=== PATIENT | male | born 1940 | race Caucasian/White ===

== ENCOUNTER → 2017-01-01 | Outpatient (CLI) | payer MEDICARE ==
[~2017-01-01] MED LIST: *BLDWK10; ALLOPUR300 PO; BABY81CH; COLC0.6T; COLCHI0.6 PO; CORE6.25; COUMADIN25 PO; CRES20TA; CRESTOR PO; DOXYCYC100 PO; ELIDEL TOPICAL; FERR325T; FERROUS325 PO; GLUCOP1000 PO; HCTZ25 PO; ISOS30BRAN; LIPITOR10 PO; NEXIUM40 PO; NITR0.4S; NITROSTAT4 SL; NIZORALSHA TOPICAL; PERCOCET PO; PLAVIX75 PO; THERGRAN; TRAM50TA2; TRICOR48 PO; TRICOR54 PO; ULTRAM50 PO; VASO5TAB; VASOTEC25 PO; VIAGRA100 PO; VIAGRA50 PO; VICO5TAB; VICODIN PO; ZETIA PO; [UNRECOGNIZED DRUG - CODE] PO; [UNRECOGNIZED DRUG - OTHER] TOPICAL
== END ==
LOC: M LAB 07:41
PROVIDERS: ATTEND Urology
DX: Z85.46 Personal history of malignant neoplasm of prostate (principal)

== ENCOUNTER → 2017-05-22 | Outpatient (CLI) | payer MEDICARE ==
--- NOTE | 2017-05-23 09:54 | DEXA ---
AP SPINE L1 - L4 1.390 1.6 1.8 LT FEMUR TOTAL 0.730 -2.2 -1.7 RT FEMUR TOTAL TOTAL BODY TOTAL OTHER COMMENTS: Normal bone densitometry of the spine. There is low bone density of the left hip. The density of the spine is increased 5.4% since the initial exam on 01/23/2011. The spine density has decreased 1.9% since the most recent exam on 06/03/2015. The density of the left hip has decreased 7.4% since the initial exam on 2010. The density of the left hip has increased 0.4% since the most recent exam on . FOLLOW-UP: Recommendation for the next bone density exam: 2 years. ABI
== END ==
LOC: M WHC 09:57
PROVIDERS: ATTEND Urology
DX: Z85.46 Personal history of malignant neoplasm of prostate (principal)

== ENCOUNTER → 2017-07-03 | Outpatient (CLI) | payer MEDICARE ==
[2017-07-03 07:51] LABS: MEAN CORPUSCULAR HEMOGLOBIN 31.8 pg (27.0-33.0); MEAN CORPUSCULAR HGB CONC 32.9 g/dl (32.0-36.5); MEAN CORPUSCULAR VOLUME 96.6 fl (80.0-96.0); PLATELET COUNT, AUTOMATED 206 10^3/uL (150-450); RED CELL DISTRIBUTION WIDTH 13.2 % (11.5-14.5)
[2017-07-03 08:32] LABS: ANION GAP 6 MEQ/L (8-16); BLOOD UREA NITROGEN 35 MG/DL (7-18); CALCIUM LEVEL 9.4 MG/DL (8.8-10.2); CARBON DIOXIDE LEVEL 30 MEQ/L (21-32); CHLORIDE LEVEL 105 MEQ/L (98-107); GLOMERULAR FILTRATION RATE 39.5 (>42); GLUCOSE, FASTING 133 MG/DL (83-110); POTASSIUM SERUM 4.4 MEQ/L (3.5-5.1); SODIUM LEVEL 141 MEQ/L (136-145)
== END ==
LOC: M LAB 07:34
PROVIDERS: ATTEND Urology
DX: Z85.46 Personal history of malignant neoplasm of prostate (principal)

== ENCOUNTER → 2017-11-29 | Outpatient (REF) | payer MEDICARE ==
[2017-11-29 18:37] LABS: URIC ACID 4.6 MG/DL (3.5-7.2)
== END ==
LOC: M LAB REF 17:26
DX: M10.9 Gout, unspecified (principal)
CPT/HCPCS: 84550

== ENCOUNTER → 2017-12-20 | Outpatient (CLI) | payer MEDICARE | LOC: M RAD 10:50 | DX: D49.519 Neoplasm of unspecified behavior of unspecified kidney (principal) | CPT/HCPCS: 76775 ==

== ENCOUNTER → 2017-12-28 | Outpatient (CLI) | payer MEDICARE ==
[2017-12-28 08:20] LABS: HEMOGLOBIN 12.5 g/dl (13.5-17.5); MEAN CORPUSCULAR HGB CONC 32.9 g/dl (32.0-36.5); MEAN CORPUSCULAR VOLUME 97.2 fl (80.0-96.0); PLATELET COUNT, AUTOMATED 158 10^3/uL (150-450); RED BLOOD COUNT 3.91 10^6/uL (4.30-6.10); RED CELL DISTRIBUTION WIDTH 13.8 % (11.5-14.5); WHITE BLOOD COUNT 3.7 10^3/uL (4.0-10.0)
[2017-12-28 08:45] LABS: ANION GAP 5 MEQ/L (8-16); BLOOD UREA NITROGEN 27 MG/DL (7-18); CALCIUM LEVEL 9.2 MG/DL (8.8-10.2); CARBON DIOXIDE LEVEL 28 MEQ/L (21-32); CHLORIDE LEVEL 110 MEQ/L (98-107); CREATININE FOR GFR 1.94 MG/DL (0.70-1.30); GLOMERULAR FILTRATION RATE 36.1 (>42); GLUCOSE, FASTING 155 MG/DL (70-100); POTASSIUM SERUM 4.4 MEQ/L (3.5-5.1); PROSTATIC SPECIFIC AG MONITOR < 0.01 NG/ML (< 4.0); SODIUM LEVEL 143 MEQ/L (136-145)
== END ==
LOC: M LAB 07:39
DX: Z08 Encounter for follow-up examination after completed treatment for malignant neoplasm (principal); Z85.46 Personal history of malignant neoplasm of prostate
CPT/HCPCS: 84153

== ENCOUNTER → 2018-07-04 | Outpatient (CLI) | payer MEDICARE ==
[2018-07-04 11:06] LABS: HEMATOCRIT 38.1 % (42.0-52.0); HEMOGLOBIN 12.3 g/dl (13.5-17.5); MEAN CORPUSCULAR HEMOGLOBIN 32.2 pg (27.0-33.0); MEAN CORPUSCULAR HGB CONC 32.3 g/dl (32.0-36.5); MEAN CORPUSCULAR VOLUME 99.7 fl (80.0-96.0); PLATELET COUNT, AUTOMATED 160 10^3/uL (150-450); RED BLOOD COUNT 3.82 10^6/uL (4.30-6.10); RED CELL DISTRIBUTION WIDTH 13.2 % (11.5-14.5); WHITE BLOOD COUNT 5.6 10^3/uL (4.0-10.0)
[2018-07-04 11:36] LABS: ANION GAP 5 MEQ/L (8-16); BLOOD UREA NITROGEN 30 MG/DL (7-18); CALCIUM LEVEL 9.6 MG/DL (8.8-10.2); CARBON DIOXIDE LEVEL 28 MEQ/L (21-32); CHLORIDE LEVEL 109 MEQ/L (98-107); CREATININE FOR GFR 1.75 MG/DL (0.70-1.30); GLOMERULAR FILTRATION RATE 40.7 (>42); GLUCOSE, FASTING 146 MG/DL (70-100); POTASSIUM SERUM 4.4 MEQ/L (3.5-5.1); PROSTATIC SPECIFIC AG MONITOR < 0.0 NG/ML (< 4.0); SODIUM LEVEL 142 MEQ/L (136-145)
== END ==
LOC: M RAD 10:29
DX: Z85.46 Personal history of malignant neoplasm of prostate (principal); N28.9 Disorder of kidney and ureter, unspecified; E27.9 Disorder of adrenal gland, unspecified; N28.1 Cyst of kidney, acquired
CPT/HCPCS: 76775

== ENCOUNTER → 2019-01-14 | Outpatient (CLI) | payer MEDICARE ==
[2019-01-14 09:25] LABS: ALBUMIN 3.7 GM/DL (3.2-5.2); BILIRUBIN,TOTAL 0.9 MG/DL (0.2-1.0); CREATININE FOR GFR 1.74 MG/DL (0.70-1.30); GLOMERULAR FILTRATION RATE 40.8 (>42); POTASSIUM SERUM 4.3 MEQ/L (3.5-5.1)
== END ==
LOC: M LAB 07:45
PROVIDERS: ATTEND Family Medicine
DX: E11.21 Type 2 diabetes mellitus with diabetic nephropathy (principal); I12.9 Hypertensive chronic kidney disease with stage 1 through stage 4 chronic kidney disease, or unspecified chronic kidney disease

== ENCOUNTER → 2019-01-14 | Outpatient (CLI) | payer MEDICARE ==
[2019-01-14 09:26] LABS: CHOLESTEROL RISK RATIO 2.885 (<5)
== END ==
LOC: M LAB 07:42
PROVIDERS: ATTEND Internal Medicine Cardiovascular Disease
DX: E78.00 Pure hypercholesterolemia, unspecified (principal)

== ENCOUNTER → 2019-01-14 | Outpatient (CLI) | payer MEDICARE | LOC: M LAB 07:39 | PROVIDERS: ATTEND Nurse Practitioner Women's Health | DX: Z85.46 Personal history of malignant neoplasm of prostate (principal) ==

== ENCOUNTER 2019-02-17 17:59 | Emergency (ER) | payer MEDICARE ==
[~2019-02-17] VITALS: Ht 172.7 cm; Wt 68.2 kg
[2019-02-17] MEDS ORDERED: AMLO10TA5 PO (18:08)
[2019-02-17] MEDS ORDERED: ALLO10TA PO (18:08)
[2019-02-17] MEDS ORDERED: [UNRECOGNIZED DRUG - OTHER] PO (18:08)
[2019-02-17] MEDS ORDERED: LEVO50TA5 PO (18:08)
[2019-02-17] MEDS ORDERED: GLIP-162 PO (18:08)
[2019-02-17] MEDS ORDERED: FURO40TA2 PO (18:09)
[2019-02-17] MEDS ORDERED: TRUL0.5I SC (18:09)
[2019-02-17] MEDS ORDERED: LEUPROLIDE (18:11)
[2019-02-17] MEDS ORDERED: ESOM1CAP5 PO (18:11)
--- NOTE | 2019-02-17 18:45 | REPVR ---
EXAM: US Duplex Right Lower Extremity Veins, Limited EXAM DATE/TIME: 02/17/2019 6:26 PM CLINICAL HISTORY: 78 years old, male; Pain; Leg, lower; Right; Additional info: R leg swelling, pain TECHNIQUE: Imaging protocol: Real-time Duplex ultrasound of the Right Lower Extremity with 2-D lugo scale, color Doppler flow and spectral waveform analysis. Limited exam was focused on the right lower extremity veins. COMPARISON: No relevant prior studies available. FINDINGS: Right deep veins: Unremarkable. The common femoral, femoral, proximal profunda femoral and popliteal veins are patent without thrombus. Normal Doppler waveforms. Normal compressibility and/or augmentation response. Right superficial veins: Not evaluated. Soft tissues: Unremarkable. IMPRESSION: No evidence of deep vein thrombosis. Electronically signed by: Afia Mondragon On 02/17/2019 18:44:58 PM
[2019-02-17] MEDS ORDERED: KEFL500C17 PO (20:52)
[2019-02-17] MEDS ORDERED: CEPHALEXIN 500 MG CAP PO ONE (21:00)
[2019-02-17 21:05] VITALS: BP 154/71
== END 2019-02-17 21:07 | disposition home or self-care (01) ==
LOC: M ED 17:59
DX: L03.115 Cellulitis of right lower limb (principal); G06.1 Intraspinal abscess and granuloma; E11.9 Type 2 diabetes mellitus without complications; I10 Essential (primary) hypertension; E78.5 Hyperlipidemia, unspecified; Z79.82 Long term (current) use of aspirin; Z79.891 Long term (current) use of opiate analgesic; Z79.899 Other long term (current) drug therapy; Z85.46 Personal history of malignant neoplasm of prostate; Z87.442 Personal history of urinary calculi; Z90.79 Acquired absence of other genital organ(s); Z91.041 Radiographic dye allergy status; Z95.1 Presence of aortocoronary bypass graft

== ENCOUNTER → 2019-03-19 | Outpatient (REF) | payer MEDICARE ==
[~2019-03-19] MED LIST changes: +ALLO10TA PO; +AMLO10TA5 PO; +ESOM1CAP5 PO; +FURO40TA2 PO; +GLIP-162 PO; +KEFL500C17 PO; +LEUPROLIDE; +LEVO50TA5 PO; +TRUL0.5I SC; +[UNRECOGNIZED DRUG - OTHER] PO
[2019-03-19 13:31] LABS: HEMATOCRIT 37.7 % (42.0-52.0)
[2019-03-19 13:41] LABS: FERRITIN 107 NG/ML (26-388); IRON (FE) 65 UG/DL (65-175); PERCENT SATURATION 24.5 % (19.7-50.0); TOTAL IRON BINDING CAPACITY 265 UG/DL (250-450)
[2019-03-19 13:56] LABS: HEPATITIS B SURFACE ANTIGEN NEGATIVE (NEGATIVE)
[2019-03-19 14:23] LABS: HEPATITIS C VIRUS ABY INDEX 0.1 INDEX (<0.8)
[2019-03-19 14:24] LABS: HEPATITIS B CORE ANTIBODY IGM NEGATIVE (NEGATIVE)
[2019-03-19 14:25] LABS: HEPATITIS A ANTIBODY IGM NEGATIVE (NEGATIVE)
[2019-03-20 14:08] LABS: ANTINUCLEAR ANTIBODIES DIRECT Negative (Negative)
== END ==
LOC: M LAB REF 12:42
PROVIDERS: ATTEND Nurse Practitioner Adult Health
DX: D64.9 Anemia, unspecified (principal)

== ENCOUNTER → 2019-04-18 | Outpatient (CLI) | payer MEDICARE | LOC: M LAB 09:01 | PROVIDERS: ATTEND Urology | DX: C61 Malignant neoplasm of prostate (principal) ==

== ENCOUNTER → 2019-07-01 | Outpatient (CLI) | payer MEDICARE ==
--- NOTE | 2019-07-01 14:32 | REP ---
URINARY TRACT SONOGRAPHY: HISTORY: History of left renal neoplasm. Comparison sonography, June 24, 2018. Comparison CT study of the abdomen, February 10, 2013. There is an outside comparison MRI study from September 27, 2016. 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 SONOGRAPHIC FINDINGS: Scanning at the level of the urinary bladder demonstrates that it is virtually empty at the time of scanning. Renal cortical echogenicity pattern is normal, and contours are smooth. The right kidney measures 10.3 x 4.9 x 5.3 cm. Left renal dimensions are 9.0 x 3.4 x 4.4 cm. There is a 1.3 cm cyst in the lower pole of the right kidney. On the left, there is a 2.0 x 1.9 x 1.7 cm essentially isoechoic nodular area corresponding to the lesion seen on CT and MRI. This is very poorly visualized on sonography. There is an echogenic focus in the lower pole of the left kidney which may cast acoustic shadowing, possible stone. No stone is visible on the 2013 CT. No other mass lesion is seen. IMPRESSION: Ill-defined, essentially isoechoic mass suspected left mid kidney corresponding to the CT and MR images. 2.0 cm in greatest diameter by today's ultrasound. Previous MRI coronal reformatted scans demonstrate a 2.4 cm greatest craniocaudal span. Renal malignancy cannot be excluded. Electronically Signed by Michael Yang MD 07/01/2019 05:56 P
== END ==
LOC: M RAD 11:33
PROVIDERS: ATTEND Urology
DX: D49.519 Neoplasm of unspecified behavior of unspecified kidney (principal); C61 Malignant neoplasm of prostate

== ENCOUNTER → 2020-01-01 | Outpatient (CLI) | payer MEDICARE | LOC: M LAB 08:04 | PROVIDERS: ATTEND Urology | DX: C61 Malignant neoplasm of prostate (principal) ==

== ENCOUNTER 2020-03-26 12:05 | Inpatient (IN) | payer MEDICARE ==
[~2020-03-26 12:05] MED LIST changes: -AMLO10TA5 PO; +AMLO1TAB25 PO
[2020-03-26] MEDS ORDERED: MORPHINE 2 MG/ML 1ML VIAL (J2270) As Ordered ONE ×2 (13:28→14:36)
[2020-03-26] MEDS ORDERED: MORPHINE 2 MG/ML 1ML VIAL (J2270) ONE ×2 (13:28→14:36)
[2020-03-26] MEDS ORDERED: ONDANSETRON 4MG/2ML VIAL As Ordered ONE (13:28)
[2020-03-26] MEDS ORDERED: ONDANSETRON 4MG/2ML VIAL ONE ×2 (13:28→19:43)
[2020-03-26] MEDS ORDERED: READI-CAT 2 ONE ×2 (13:37→14:36)
[2020-03-26] MEDS ORDERED: READI-CAT 2 As Ordered ONE ×2 (13:37→14:36)
[2020-03-26] MEDS ORDERED: ZOSYN 3.375GM VIAL (J2543) ONE (17:13)
[2020-03-26] MEDS ORDERED: ZOSYN 3.375GM VIAL (J2543) As Ordered ONE (17:13)
[2020-03-26] MEDS ORDERED: BUPIVACAINE HCL 0.25% 30ML VIAL ONE (19:09)
[2020-03-26] MEDS ORDERED: LIDOCAINE 1% SDV 30ML VIAL ONE (19:09)
[2020-03-26] MEDS ORDERED: ROCURONIUM BROMIDE 50 MG/5 ML VIAL ONE (19:43)
[2020-03-26] MEDS ORDERED: LIDOCAINE 2% 100MG/5ML SDV (FOR ANES.) ONE (19:43)
[2020-03-26] MEDS ORDERED: METOCLOPRAMIDE INJ 10MG/2ML VIAL (J2765 PER 1) ONE (19:43)
[2020-03-26] MEDS ORDERED: MIDAZOLAM INJ 2MG/2ML VIAL (J2250 PER 1MG) ONE (19:43)
[2020-03-26] MEDS ORDERED: dexameTHASONE 4 MG/ML 1ML VIAL (J1100 PER 1MG) ONE (19:43)
[2020-03-26] MEDS ORDERED: KETOROLAC 60MG 2ML VIAL ONE (19:43)
[2020-03-26] MEDS ORDERED: fentaNYL 100 MCG/2 ML INJECTION (J3010) ONE ×2 (19:43→20:02)
[2020-03-26] MEDS ORDERED: propofoL 200 MG/20 ML VIAL ONE (19:43)
[2020-03-26] MEDS ORDERED: SUGAMMADEX SODIUM 500 MG/5 ML VIAL (BRIDION) ONE (19:43)
[2020-03-26] MEDS ORDERED: DESFLURANE 240 ML INHALANT ONE ×2 (19:43→20:22)
[2020-03-26] MEDS ORDERED: MEPERIDINE INJ 25 MG/ML VIAL (J2175) ONE (21:11)
[2020-03-27] MEDS ORDERED: ZOSYN 3.375GM VIAL (J2543) As Ordered ONE ×2 (00:42→05:56)
[2020-03-27] MEDS ORDERED: ZOSYN 3.375GM VIAL (J2543) ONE ×2 (00:42→05:56)
[2020-03-27] MEDS ORDERED: LEVOTHYROXINE 50MCG TABLET (0.05MG) As Ordered ONE (06:18)
[2020-03-27] MEDS ORDERED: LEVOTHYROXINE 50MCG TABLET (0.05MG) ONE (06:18)
[2020-03-27] MEDS ORDERED: ROSUVASTATIN 10 MG TAB (CRESTOR) ONE (08:27)
[2020-03-27] MEDS ORDERED: allopurinoL 300 MG TAB ONE (08:27)
[2020-03-27] MEDS ORDERED: ENOXAPARIN 30MG/0.3ML SYRINGE (J1650 PER 10MG) ONE (08:27)
[2020-03-27] MEDS ORDERED: EZETIMIBE 10 MG TAB (ZETIA) As Ordered ONE (08:27)
[2020-03-27] MEDS ORDERED: PANTOPRAZOLE 40MG TAB (PROTONIX) As Ordered ONE (08:27)
[2020-03-27] MEDS ORDERED: EZETIMIBE 10 MG TAB (ZETIA) ONE (08:27)
[2020-03-27] MEDS ORDERED: PANTOPRAZOLE 40MG TAB (PROTONIX) ONE (08:27)
[2020-03-27] MEDS ORDERED: amLODIPine 10 MG TAB As Ordered ONE (08:28)
[2020-03-27] MEDS ORDERED: ROSUVASTATIN 10 MG TAB (CRESTOR) As Ordered ONE (08:28)
[2020-03-27] MEDS ORDERED: allopurinoL 300 MG TAB As Ordered ONE (08:28)
[2020-03-27] MEDS ORDERED: ENOXAPARIN 30MG/0.3ML SYRINGE (J1650 PER 10MG) As Ordered ONE (08:29)
--- NOTE | 2020-04-23 11:41 | ER ---
DATE: 03/26/2020 HISTORY OF PRESENT ILLNESS: Mr. Cardona is a 79-year-old male who presented to the emergency department at 11 a.m. in the morning with lower abdominal pain. He said the pain started at 5 a.m. in the morning in his right lower abdominal quadrant. It was sharp, constant, 7/10, and progressive. There was no radiation. No aggravating and relieving factors. The patient also complains of having vomiting, one episode, a cupful, normal in color. No blood, no mucus. The patient also has nausea. He had two bowel movements, which made no difference in his pain intensity. He has no fevers, no sudden weight or unintentional weight loss, no history of travel, no fever, no sore throat, no diarrhea, no genitourinary problems. PAST MEDICAL HISTORY: Significant for: 1. Diabetes. 2. Hypertension. 3. 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 4. Stage III chronic kidney disease. 5. Prostate cancer. 6. Coronary artery disease. FAMILY HISTORY: Diabetes in mother. SOCIAL HISTORY: He has no history of alcohol intake. No smoking and no illicit drug use. SEXUAL HISTORY: He is sexually active with his . Does not use protection. PAST SURGICAL HISTORY: 1. Bilateral hip replacement surgeries. 2. Coronary artery bypass graft (CABG) procedure done. MEDICATIONS: - Trulicty weekly for diabetes - glipizide 5 mg daily for diabetes - amlodipine 10 mg daily for hypertension - ezetimibe 10 mg twice a day for hypercholesterolemia - Synthroid 50 mcg daily for hypothyroidism - furosemide 40 mg per oral for hypertension - esomeprazole 40 mg per oral - allopurinol 130 mg per oral - Eligard, Lupron 45 mg monthly for his previous prostate cancer - isosorbide mononitrate 60 mg per oral - tramadol 50 mg as needed - Tylenol 650 mg as needed - Crestor 20 mg per oral daily PHYSICAL EXAMINATION: The patient looks comfortable, sitting in the bed, well oriented to time, place, person. Not in any acute distress at the moment. He has already been given pain medications. Put on Zosyn and Zofran for the nausea. Currently comfortable. HEAD/ENT: Eyes: No discharge, no conjunctival injection, no scleral icterus, no pallor. Extraocular movements normal. No discharge from the nose, mouth, ears. Hydration status good. Dental hygiene good. There are no lymphadenopathies, no thyromegaly, no swelling in the neck, no carotid bruit. LUNGS: Clear bilaterally. No wheezing, no rhonchi, no crackles heard. HEART: Normal heart sounds, S1, S2. No murmurs heard. ABDOMEN: The abdomen looks nondistended. No rashes. No scars from previous surgeries. No visible pulsations. On palpation, there is tenderness in the right lower quadrant and the middle lower quadrants. No organomegaly could be palpated. No swelling elsewhere. Auscultation: Normal bowel sounds heard. Tympanitic bowel sounds. On percussion, normal tympanitic percussion all over the abdomen. Normal liver span. No splenomegaly. Tenderness felt at the McBurney's point. LOWER EXTREMITIES: Mild bilateral edema seen. UPPER EXTREMITIES: Pulses are good. Good volume, regular. No radial/femoral delay. No cyanosis, no clubbing, no asterixis. NEUROLOGIC: Sensation is intact with gross motor normal. Cranial nerves normal. The patient was admitted in the emergency department (ED), and his labs were done. Labs showed electrolytes were normal. Glucose was 158. Creatinine was 2, BUN was 36. Oral contrast was given for CT scan, and a CT contrast shows acute appendicitis, cholelithiasis with no evidence of acute cholecystitis. Moderately severe coronary artery calcification with evidence of prior CABG. The heart size is normal. Prior prostatectomy changes in the pelvis. Right total hip arthroplasty with no apparent complication. Mild left renal atrophy. A small 11 mm rounded hypodense mass is present in the cortex of the lower pole, right kidney. ASSESSMENT: Acute appendicitis. PLAN: Put the patient on IV fluids. Intravenous Zosyn started. Zofran to control the nausea. The surgical plan is to perform appendectomy laparoscopically, watch overnight for any fevers, and then discharge on oral antibiotics. ABI
[2020-05-09 15:53] LABS: INR 1.06; PARTIAL THROMBOPLASTIN TIME 33.8 SECONDS (24.2-38.5)
[2020-05-09 15:56] LABS: BASO % 0.2 % (0.0-1.0); HEMATOCRIT 37.4 % (42.0-52.0); HEMOGLOBIN 12.7 g/dl (13.5-17.5); LYMPH # 0.6 10^3/uL (1.5-5.0); LYMPH % 5.6 % (24.0-44.0); MEAN CORPUSCULAR HEMOGLOBIN 34.1 pg (27.0-33.0); MEAN CORPUSCULAR VOLUME 100.5 fl (80.0-96.0); MONO # 0.6 10^3/uL (0.0-0.8); NEUTROPHILS # 9.3 10^3/uL (1.5-8.5); NEUTROPHILS % 87.8 % (36.0-66.0); PLATELET COUNT, AUTOMATED 154 10^3/uL (150-450); RED BLOOD COUNT 3.72 10^6/uL (4.30-6.10); WHITE BLOOD COUNT 10.6 10^3/uL (4.0-10.0)
[2020-05-14 14:44] LABS: BASO % 0.1 % (0.0-1.0); HEMATOCRIT 31.7 % (42.0-52.0); HEMOGLOBIN 10.7 g/dl (13.5-17.5); LYMPH # 0.4 10^3/uL (1.5-5.0); LYMPH % 4.2 % (24.0-44.0); MEAN CORPUSCULAR HEMOGLOBIN 34.5 pg (27.0-33.0); MEAN CORPUSCULAR HGB CONC 33.8 g/dl (32.0-36.5); MEAN CORPUSCULAR VOLUME 102.3 fl (80.0-96.0); MONO # 0.3 10^3/uL (0.0-0.8); NEUTROPHILS # 8.3 10^3/uL (1.5-8.5); NEUTROPHILS % 92.4 % (36.0-66.0); PLATELET COUNT, AUTOMATED 129 10^3/uL (150-450)
--- NOTE | 2020-05-27 09:30 | RO ---
DATE OF OPERATION: 03/26/2020 PREOPERATIVE DIAGNOSIS: Acute appendicitis. POSTOPERATIVE DIAGNOSIS: Acute appendicitis, suppurativa, not perforated. PROCEDURE: Laparoscopic appendectomy. SURGEON: Carlos Espinoza MD TRY OUT PERSON: Melonie Diaz MD, PGY-1 ANESTHESIA: General. SPECIMEN: Appendix. ESTIMATED BLOOD LOSS: 10 mL. COMPLICATIONS: None. CONDITION: Patient tolerated the procedure well. DESCRIPTION OF PROCEDURE: Mr. Longoria was seen in the emergency room with a one day history of abdominal pain. He was found to have evidence for acute appendicitis. He was brought to the OR for laparoscopic appendectomy. He received Zosyn 3.75 grams intravenously (IV) preoperatively while he was seen in the emergency room. He was brought to the operating room and placed supine on the table. Compression boots placed on his lower extremities for deep vein thrombosis (DVT) prophylaxis. General endotracheal anesthesia was started. His abdomen was then prepped and draped in the usual sterile fashion. He had a lower midline incision from his prostatectomy; thus, we entered the abdomen through the left upper quadrant via Veress needle technique. CO2 insufflation was then started at a pressure of 15 mmHg. Using the same incision, a 5-mm VisiPort was placed under direct vision with the laparoscope. The insertion site was then inspected for injury and none was found. He was then placed in the Trendelenburg position with the right side tilted up to further expose the appendix. He had some omental adhesions along the lower of the abdomen. I placed a 5-mm left lower quadrant port and took down the omental adhesions with the Harmonic scalpel. An 8-mm port was placed just underneath the umbilicus. There was some difficulty visualizing the right lower quadrant due to the mild distention of the cecum. Likewise, slight adhesion of the lower portion of the appendix to the left lateral side wall. Thus, I switched the left upper quadrant port to a suprapubic port. Using this as my operative port, the adhesions of the appendix to the retroperitoneum and right side wall was taken down delivering the appendix into view. The mesoappendix was divided with the Harmonic scalpel. There was panniculus at the distal third. This tapered off to a relatively healthy mass. There was some suppurative covering on the distal portion of the appendix. I did not see any perforation. There was a scant amount of reactive fluid at the right gutter. Two EndoLoop PDS were placed to ligate the base of the appendix and the appendix was divided with the Harmonic scalpel. This was placed in the a 5-mm Endo Catch bag and delivered through the 8-mm port site. Under insufflation, we checked for hemostasis and suctioned off the small amount of fluid at the right gutter. There was no fluid visualized in the pelvis nor around the liver. After surveying for any injury, the abdomen was deflated and all ports were removed. The 8-mm port site was closed with 0-Vicryl in a mattress fashion. All skin incisions closed with 4-0 Monocryl in a subcuticular fashion. Steri-Strips, gauze dressings, and Tegaderm then placed on top of the incision. The patient was then promptly awakened, extubated, and brought to the recovery room in stable condition. ABI
--- NOTE | 2020-06-03 08:17 | IPN ---
DATE: 03/26/2020 The patient reports feeling much better. Denies any nausea or vomiting. Tolerating clear liquids this morning and voiding freely. Vital signs were reviewed. He has been afebrile, nontachycardic. On examination, he is lying in bed. Looks very comfortable. Skin is warm and dry. Lungs sounds are clear to auscultation bilaterally. No wheezing. Heart rate and rhythm are regular with no murmurs. Abdomen is relatively flat, soft, nondistended. Port site dressings are clean, dry, and intact. Nontender on palpation. No significant extremity edema. Laboratories were reviewed. His white count is down to 9. Otherwise, his electrolytes are also normal. His creatinine has come down to 1.9. IMPRESSION: Postoperative day #1 following laparoscopic appendectomy for acute appendicitis that is not perforated and no significant extra-appendiceal fluid collection. He will be advanced to a regular diet. If he tolerates it, he should be able to go home. I do not think he needs any further antibiotic treatment. He is instructed to followup with me in the clinic in 2 weeks' time. A prescription for Percocet 2.5/325 mg tablets was sent to his pharmacy. ABI
[2020-06-14 11:46] LABS: ALT/SGPT 88 U/L (12-78); BILIRUBIN,DIRECT 0.3 MG/DL (0.0-0.2); BILIRUBIN,TOTAL 0.7 MG/DL (0.2-1.0); BLOOD UREA NITROGEN 36 MG/DL (7-18); CALCIUM LEVEL 9.3 MG/DL (8.8-10.2); CARBON DIOXIDE LEVEL 25 MEQ/L (21-32); CHLORIDE LEVEL 108 MEQ/L (98-107); CK-MB VALUE MASS 1.4 NG/ML (<3.6); CPK CREATINE PHOSPHOKINASE 121 U/L (39-308); GLOMERULAR FILTRATION RATE 34.7 (>42); GLUCOSE, FASTING 158 MG/DL (70-100); MB/CK RELATIVE INDEX 1.16 (< OR =4); POTASSIUM SERUM 4.6 MEQ/L (3.5-5.1); SODIUM LEVEL 139 MEQ/L (136-145); TOTAL PROTEIN 7.4 GM/DL (6.4-8.2); TROPONIN I < 0.02 NG/ML (< 0.10)
[2020-06-21 19:52] LABS: CALCIUM LEVEL 9.1 MG/DL (8.8-10.2); CREATININE FOR GFR 1.93 MG/DL (0.70-1.30); GLOMERULAR FILTRATION RATE 36.1 (>42); POTASSIUM SERUM 4.9 MEQ/L (3.5-5.1)
== END 2020-03-27 12:41 | disposition home or self-care (01) | DRG 343 ==
LOC: M ED 12:05 → M MS5PR 20:38
PROVIDERS: ADMIT Surgery; ATTEND Surgery
PROC: 0DTJ4ZZ Resection of Appendix, Percutaneous Endoscopic Approach (ICD-10-PCS; principal; 2020-03-26)
DX: K35.80 Unspecified acute appendicitis (principal); E11.9 Type 2 diabetes mellitus without complications; I12.9 Hypertensive chronic kidney disease with stage 1 through stage 4 chronic kidney disease, or unspecified chronic kidney disease; N18.3 Chronic kidney disease, stage 3 (moderate); I25.10 Atherosclerotic heart disease of native coronary artery without angina pectoris; Z85.46 Personal history of malignant neoplasm of prostate; Z96.653 Presence of artificial knee joint, bilateral; M19.90 Unspecified osteoarthritis, unspecified site; Z79.899 Other long term (current) drug therapy

== ENCOUNTER → 2020-06-30 | Outpatient (CLI) | payer MEDICARE ==
--- NOTE | 2020-06-30 13:33 | REP ---
INDICATION: RENAL NEOPLASM, LAB 1ST THEN US. COMPARISON: Comparison is made with multiple prior studies including renal sonography July 01, 2019, CT studies from March 26, 2020 and January of 2011. MRI study is reviewed from September 27, 2016 done at outside facility.. TECHNIQUE: Urinary tract sonography. FINDINGS: Scanning at the level of the urinary bladder shows no abnormality. Renal cortical echogenicity pattern is normal bilaterally and contours are smooth. There is a small cyst in the lower pole right kidney measuring 0.8 cm in greatest diameter. There is an isoechoic mass again seen centrally in the left mid kidney measuring 2.3 x 2.3 x 1.6 cm. This is felt to be unchanged from the comparison MRI study of September 27, 2016. There is no evidence of hydronephrosis on either side. No calculus is visible sonographically.. The right kidney measures 10.1 x 4.8 x 5.5 cm. Left renal dimensions are 8.4 x 3.3 x 3.8 cm. IMPRESSION: Isoechoic stable 2.3 cm mass in the left mid kidney unchanged from comparison MRI study September 27, 2016. Small cyst lower pole right kidney. Otherwise negative.. <Electronically signed by Torito Yang > 06/30/20 [id number]
== END ==
LOC: M RAD 09:39
PROVIDERS: ATTEND Urology
DX: N28.89 Other specified disorders of kidney and ureter (principal); N28.1 Cyst of kidney, acquired; C61 Malignant neoplasm of prostate; D49.519 Neoplasm of unspecified behavior of unspecified kidney

== ENCOUNTER → 2021-01-04 | Outpatient (CLI) | payer MEDICARE | LOC: M LAB 08:39 | PROVIDERS: ATTEND Urology | DX: C61 Malignant neoplasm of prostate (principal) ==

== ENCOUNTER → 2021-01-18 | Outpatient (CLI) | payer MEDICARE ==
--- NOTE | 2021-01-18 14:03 | REP ---
INDICATION: PAIN AFTER FALL COMPARISON: None. TECHNIQUE: AP and lateral views of the sacrum and coccyx. FINDINGS: Age-related osteopenia and degenerative changes limited examination. No obvious acute sacrococcygeal fracture identified. IMPRESSION: No definite acute sacrococcygeal fracture identified. <Electronically signed by Prabhakar Burns > 01/18/21 [id number]
--- NOTE | 2021-01-18 14:05 | REP ---
INDICATION: PAIN AFTER FALL COMPARISON: None. TECHNIQUE: AP and frog-lateral views of the right femur. FINDINGS: Right hip replacement. Osseous structures demonstrate postsurgical and degenerative changes. No obvious acute fracture or dislocation. IMPRESSION: No obvious acute fracture or dislocation. <Electronically signed by Prabhakar Burns > 01/18/21 [id number]
== END ==
LOC: M WUC 13:34
PROVIDERS: ATTEND Physician Assistant
DX: M25.551 Pain in right hip (principal); W10.9XXA Fall (on) (from) unspecified stairs and steps, initial encounter; M85.88 Other specified disorders of bone density and structure, other site; Z96.641 Presence of right artificial hip joint

== ENCOUNTER → 2021-06-22 | Outpatient (CLI) | payer MEDICARE ==
--- NOTE | 2021-06-22 13:18 | REP ---
INDICATION: LT RENAL MASS. The patient has a known left renal mass imaged multiple times by ultrasonography and by MRI. The latest prior ultrasound examination of 06/30/2020 showed the mass to be stable measuring 2.3 cm. COMPARISON: Multiple TECHNIQUE: Real-time sonographic evaluation of the kidneys with Doppler FINDINGS: Multiple ultrasonographic images of the right kidney show the right kidney to measure 9.9 x 5.9 x 5.2 cm. The renal cortical echotexture is unremarkable. There are no masses. There is good corticomedullary differentiation. There is no hydronephrosis. There are no perinephric fluid collections. There is an incidental 1.3 cm sized cyst in the inferior pole Multiple ultrasonographic images of the left kidney show the left kidney to measure 9.7 x 2.9 x 3.8 cm. The renal cortical echotexture is unremarkable. There is an unchanged mass in the inferior pole region.. There is good corticomedullary differentiation. There is no hydronephrosis. There are no perinephric fluid collections. IMPRESSION: No significant change from prior exams. <Electronically signed by Rudy Casanova > 06/22/21 [id number]
== END ==
LOC: M RAD 10:01
PROVIDERS: ATTEND Urology
DX: N28.89 Other specified disorders of kidney and ureter (principal); C61 Malignant neoplasm of prostate; D49.519 Neoplasm of unspecified behavior of unspecified kidney

== ENCOUNTER → 2022-01-05 | Outpatient (CLI) | payer MEDICARE | LOC: M LAB 08:52 | PROVIDERS: ATTEND Urology | DX: C61 Malignant neoplasm of prostate (principal) ==

== ENCOUNTER → 2022-06-29 | Outpatient (CLI) | payer MEDICARE | LOC: M LAB 09:14 | PROVIDERS: ATTEND Urology | DX: C61 Malignant neoplasm of prostate (principal) ==

== ENCOUNTER → 2022-07-11 | Outpatient (CLI) | payer MEDICARE | LOC: M RAD 07:29 | PROVIDERS: ATTEND Urology | DX: N28.1 Cyst of kidney, acquired (principal); N28.89 Other specified disorders of kidney and ureter ==

== ENCOUNTER 2022-12-19 06:08 | Day surgery (SDC) | payer MEDICARE ==
[~2022-12-19] VITALS: Ht 172.7 cm; Wt 67.3 kg
[~2022-12-19 06:08] MED LIST changes: +ACET650T61 PO; +CYCLOPENTOLATE 1% OPHTH SOLN 2ML BTL OD SCH; +EZET10TA21 PO; +NITR4TASL SL; +OFLOXACIN 0.3 % (OCUFLOX) OPTH SOL 5ML OD SCH; +PHENYLEPHRINE 2.5% OPHTH SOL 2ML OD SCH; +PROPARACAINE 0.5% OPHTH SOL 15ML OD ONE; +RAMI1CAP26 PO; +ROSU40TA4 PO; +TRAM50TA2 PO; +TROPICAMIDE 1% OPHTH SOLN 15ML OD SCH; +VITMTA PO
[2022-12-19] MEDS ORDERED: LIDOCAINE 1% SDV 5ML VIAL As Ordered ONE (06:41)
[2022-12-19] MEDS ORDERED: CEFUROXIME 1MG/0.1ML INTRACAMERAL INJ As Ordered ONE (06:42)
[2022-12-19] MEDS ORDERED: BSS IRR 500ML/OMIDRIA 4ML IRR BAG (OR ONLY) As Ordered ONE (06:43)
[2022-12-19] MEDS ORDERED: MIDAZOLAM INJ 2MG/2ML VIAL As Ordered ONE (07:37)
[2022-12-19] MEDS ORDERED: fentaNYL 100 MCG/2 ML INJECTION As Ordered ONE (07:37)
[2022-12-19] MEDS ORDERED: VISCOAT 40-30MG/ML 0.5ML SYRINGE As Ordered ONE (07:40)
[2022-12-19] MEDS ORDERED: DUOVISC (0.50ML VISCOAT/0.85ML PROVISC) OPHTH KIT IO ONE (07:59)
[2022-12-19] MEDS ORDERED: TOBRADEX OPHTH OINT 3.5 GM As Ordered ONE (08:00)
[2022-12-19 08:16] VITALS: BP 187/79
== END 2022-12-19 08:31 | disposition home or self-care (01) ==
LOC: M SDC 06:08
PROVIDERS: ATTEND Ophthalmology
DX: H25.11 Age-related nuclear cataract, right eye (principal); H21.81 Floppy iris syndrome; E11.9 Type 2 diabetes mellitus without complications; I10 Essential (primary) hypertension; E78.5 Hyperlipidemia, unspecified; E03.9 Hypothyroidism, unspecified; K21.9 Gastro-esophageal reflux disease without esophagitis; C61 Malignant neoplasm of prostate; Z86.79 Personal history of other diseases of the circulatory system; Z79.52 Long term (current) use of systemic steroids; Z79.811 Long term (current) use of aromatase inhibitors; Z79.899 Other long term (current) drug therapy; Z91.041 Radiographic dye allergy status; Z96.641 Presence of right artificial hip joint
CPT/HCPCS: 66984; 92015; J0697; J1097; J2250; J3010; V2632

== ENCOUNTER → 2023-01-04 | Outpatient (CLI) | payer MEDICARE ==
[~2023-01-04] MED LIST changes: -CYCLOPENTOLATE 1% OPHTH SOLN 2ML BTL OD SCH; -OFLOXACIN 0.3 % (OCUFLOX) OPTH SOL 5ML OD SCH; -PHENYLEPHRINE 2.5% OPHTH SOL 2ML OD SCH; -PROPARACAINE 0.5% OPHTH SOL 15ML OD ONE; -TROPICAMIDE 1% OPHTH SOLN 15ML OD SCH
== END ==
LOC: M LAB 07:48
PROVIDERS: ATTEND Urology
DX: C61 Malignant neoplasm of prostate (principal)

== ENCOUNTER 2023-02-06 08:32 | Day surgery (SDC) | payer MEDICARE ==
[~2023-02-06] VITALS: Ht 172.7 cm; Wt 66.2 kg
[~2023-02-06 08:32] MED LIST changes: +CEFUROXIME 1MG/0.1ML INTRACAMERAL INJ As Ordered ONE; +CYCLOPENTOLATE 1% OPHTH SOLN 2ML BTL OS SCH; +LIDOCAINE 1% SDV 5ML VIAL As Ordered ONE; +OFLOXACIN 0.3 % (OCUFLOX) OPTH SOL 5ML OS SCH; +PHENYLEPHRINE 2.5% OPHTH SOL 2ML OS SCH; +PROPARACAINE 0.5% OPHTH SOL 15ML OS ONE; +TROPICAMIDE 1% OPHTH SOLN 15ML OS SCH
[2023-02-06] MEDS ORDERED: BSS IRR 500ML/OMIDRIA 4ML IRR BAG (OR ONLY) As Ordered ONE (09:40)
[2023-02-06] MEDS ORDERED: MIDAZOLAM INJ 2MG/2ML VIAL As Ordered ONE (10:38)
[2023-02-06] MEDS ORDERED: fentaNYL 100 MCG/2 ML INJECTION As Ordered ONE (10:38)
[2023-02-06 10:51] VITALS: BP 140/65; TEMP 97.1; O2SAT 98
[2023-02-06] MEDS ORDERED: INSULIN LISPRO (NovoLOG) PER UNIT SC PRN (11:15)
== END 2023-02-06 11:10 | disposition home or self-care (01) ==
LOC: M SDC 08:32
PROVIDERS: ATTEND Ophthalmology
DX: H25.12 Age-related nuclear cataract, left eye (principal); I25.2 Old myocardial infarction; E78.5 Hyperlipidemia, unspecified; Z95.5 Presence of coronary angioplasty implant and graft; I25.10 Atherosclerotic heart disease of native coronary artery without angina pectoris; E11.9 Type 2 diabetes mellitus without complications; E03.9 Hypothyroidism, unspecified; Z79.899 Other long term (current) drug therapy; Z79.890 Hormone replacement therapy; Z91.041 Radiographic dye allergy status
CPT/HCPCS: 66984; J0697; J1097; J2250; J3010; V2788

== ENCOUNTER → 2023-03-09 | Outpatient (REF) | payer MEDICARE ==
[~2023-03-09] MED LIST changes: -CEFUROXIME 1MG/0.1ML INTRACAMERAL INJ As Ordered ONE; -CYCLOPENTOLATE 1% OPHTH SOLN 2ML BTL OS SCH; -LIDOCAINE 1% SDV 5ML VIAL As Ordered ONE; -OFLOXACIN 0.3 % (OCUFLOX) OPTH SOL 5ML OS SCH; -PHENYLEPHRINE 2.5% OPHTH SOL 2ML OS SCH; -PROPARACAINE 0.5% OPHTH SOL 15ML OS ONE; -TROPICAMIDE 1% OPHTH SOLN 15ML OS SCH
[2023-03-13 13:10] LABS: FOLATE > 24.0 NG/ML (>5.4); VITAMIN B12 LEVEL 627 PG/ML (211-911)
== END ==
LOC: M LAB REF 12:29
PROVIDERS: ATTEND Family Medicine
DX: D64.9 Anemia, unspecified (principal)

== ENCOUNTER → 2023-05-29 | Outpatient (REF) | payer MEDICARE ==
[2023-05-29 18:19] LABS: CREATININE,RANDOM URINE 142.6 MG/DL
[2023-05-29 18:20] LABS: TOTAL PROTEIN,RANDOM URINE 144.6 MG/DL (0.0-14.0)
== END ==
LOC: M LAB REF 17:12
PROVIDERS: ATTEND Nurse Practitioner Family
DX: R80.9 Proteinuria, unspecified (principal)

== ENCOUNTER → 2023-06-20 | Outpatient (CLI) | payer MEDICARE | LOC: M RAD 08:18 | PROVIDERS: ATTEND Family Medicine | DX: K76.0 Fatty (change of) liver, not elsewhere classified (principal); K80.20 Calculus of gallbladder without cholecystitis without obstruction; N28.1 Cyst of kidney, acquired ==

== ENCOUNTER → 2023-06-20 | Outpatient (CLI) | payer MEDICARE | LOC: M RAD 08:23 | PROVIDERS: ATTEND Urology | DX: D49.519 Neoplasm of unspecified behavior of unspecified kidney (principal); C61 Malignant neoplasm of prostate ==

== ENCOUNTER → 2024-01-25 | Outpatient (CLI) | payer MEDICARE ==
[~2024-01-25] MED LIST changes: +ESOM1CAP20 PO; -ESOM1CAP5 PO; +RAMI10CA64 PO; -RAMI1CAP26 PO; -ROSU40TA4 PO; +ROSU40TA63 PO
== END ==
LOC: M LAB 07:59
PROVIDERS: ATTEND Urology
DX: C61 Malignant neoplasm of prostate (principal)

== ENCOUNTER → 2024-03-10 | Outpatient (REF) | payer MEDICARE | LOC: M LAB REF 12:45 | PROVIDERS: ATTEND Family Medicine | DX: R74.8 Abnormal levels of other serum enzymes (principal) ==

== ENCOUNTER → 2024-05-23 | Outpatient (REF) | payer MEDICARE ==
[~2024-05-23] MED LIST changes: -ROSU40TA63 PO; +ROSU40TA81 PO
[2024-05-23 18:00] LABS: CREATININE,RANDOM URINE 154.6 MG/DL
[2024-05-23 18:03] LABS: TOTAL PROTEIN,RANDOM URINE 203.4 MG/DL (0.0-14.0)
== END ==
LOC: M LAB REF 16:53
PROVIDERS: ATTEND Nurse Practitioner Family
DX: R80.9 Proteinuria, unspecified (principal); E11.22 Type 2 diabetes mellitus with diabetic chronic kidney disease

== ENCOUNTER → 2024-06-24 | Outpatient (CLI) | payer MEDICARE | LOC: M LAB 09:18 | PROVIDERS: ATTEND Urology | DX: C61 Malignant neoplasm of prostate (principal) ==

== ENCOUNTER → 2024-07-14 | Outpatient (REF) | payer MEDICARE ==
[2024-07-14 20:15] LABS: VITAMIN B12 LEVEL 606 PG/ML (211-911)
[2024-07-14 20:16] LABS: FOLATE > 24.0 NG/ML (>5.4)
== END ==
LOC: M LAB REF 16:44
PROVIDERS: ATTEND Family Medicine
DX: D64.9 Anemia, unspecified (principal)

== ENCOUNTER → 2025-06-22 | Outpatient (CLI) | payer MEDICARE ==
[~2025-06-22] MED LIST changes: +AMLO1TAB24; -EZET10TA21 PO; +EZET10TA57 PO; +JARD1TAB3; +LIDO4CRE12 EX; +MULT-90 PO
== END ==
LOC: M LAB 08:41
PROVIDERS: ATTEND Urology
DX: C61 Malignant neoplasm of prostate (principal)